=== PATIENT | male | born 1980 | race Two or more races ===

== ENCOUNTER 2021-10-28 14:56 | Emergency (ER) | payer MEDICAID, OTHER ==
[~2021-10-28] VITALS: Ht 182.9 cm; Wt 43.5 kg
[2021-10-28] MEDS ORDERED: KETOROLAC TROMETH 30 MG/ML 1ML VIAL IV ONE (19:15)
[2021-10-28] MEDS ORDERED: HYDROcodone-ACET 5/325MG TAB PO ONE (19:15)
[2021-10-28 22:00] VITALS: BP 129/72
== END 2021-10-28 22:34 | disposition home or self-care (01) ==
LOC: ER 14:56
DX: S43.102A Unspecified dislocation of left acromioclavicular joint, initial encounter (principal); X58.XXXA Exposure to other specified factors, initial encounter; Y93.I9 Activity, other involving external motion; Y92.89 Other specified places as the place of occurrence of the external cause; Y99.8 Other external cause status
CPT/HCPCS: 96374; 99285; J1885